=== PATIENT | male | born 1955 | race Caucasian/White ===

== ENCOUNTER 2016-10-25 20:58 | Emergency (ER) | payer BC ==
--- NOTE | 2016-10-25 21:23 | CPEKG ---
Heart Rate: 65 RR Interval: 923 P-R Interval: 244 QRSD Interval: 104 QT Interval: 452 QTC Interval: 470 P [place]: 0 QRS [place]: -8 T Wave [place]: 76 EKG Severity - ABNORMAL ECG - EKG Impression: SINUS RHYTHM EKG Impression: FIRST DEGREE AV BLOCK Electronically Signed By: Buck Wu 25-Oct-2016 23:04:10
--- NOTE | 2016-10-25 21:53 | EDPHY ---
H & P Stated Complaint: accidental levothyroxine OD ~30 min [employer]ER Source: Patient, Family Exam Limitations: No limitations - Personal History Current Tetanus/Diphtheria Vaccine: Yes Current Tetanus Diphtheria and Acellular Pertussis (TDAP): Yes - Medical/Surgical History Hx Asthma: No Hx Chronic Respiratory Disease: No Hx Diabetes: No Other PMH: HTN, Afib, high cholesterol, hypothyroid, pre diabetic - Social History Smoking Status: Never smoked HPI/ROS: CHIEF COMPLAINT: Accidental ingestion of Synthroid HISTORY OF PRESENT ILLNESS: patient says that approximately 2 hours prior to presentation he accidentally took his levothyroxine. These are 50 mcg tablets. He is uncertain how many, but he feels it was 10-15 of them. He has no complaints of any time other than feeling anxious about this. He has no chest pain. No palpitations. No shortness of breath. No sweating or hypertension by our appreciation. No abdominal pain, nausea or vomiting or dizziness. He says that he normally organizing his pills that he just takes 1 bottle every morning and evening for his daily meds, but he accidentally took the wrong bottle put he says that there were no pain medications or other meds in it and he knows that it was the levothyroxine. At this time he is completely asymptomatic. No sweating, chest pain palpitations shortness of breath or fever. No modifying factors as he has no complaints. REVIEW OF SYSTEMS: Ten systems reviewed and are negative unless otherwise noted in the HPI EXAMINATION General Appearance: Alert, no distress Head: normocephalic, atraumatic Eyes: Pupils equal and round, no conjunctival pallor or injection ENT, Mouth: Mucous membranes moist . Uvula midline. No lesions Neck: Normal inspection, supple, non-tender Respiratory: Lungs are clear to auscultation. No wheezing rhonchi or crackles Cardiovascular: Regular rate and rhythm. No murmur Gastrointestinal: Abdomen is soft and nontender Back: non-tender, no bony abnormalities Neurological: A&O, nonfocal, normal gait Skin: Warm and dry, no rash Extremities: Nontender, no pedal edema Psychiatric: Mood and affect normal DIFFERENTIAL DIAGNOSES: Including but not limited to accidental overdose, thyrotoxicosis, thyroid storm MDM: 9:53 p.m. accidental ingestion of excess levothyroxine, 50 mcg times 10-15. He has no complaints of any kind. He is resting stable. He has no tachycardia or tachypnea. He is afebrile. He is normotensive. He is asking to be discharged home but will monitor him. The nursing staff has contacted poison Control. They recommended 4 hour monitoring.. They also recommend that when he is discharged home if he is asymptomatic, they checked his temperature and heart rate twice daily. Should these increased, he should return to the emergency department immediately. They also recommend check an acetaminophen level. At this time he is comfortable with this plan and resting comfortably. 11:17 p.m. I have re-evaluated the patient. He is actually asleep. His heart rate is 70 beats per minute. Blood pressure is 135/65. He has no diaphoresis. He is afebrile. He is asking to be discharged home. I do feel he is stable for discharge home at this time. We did discuss the recommendations of the poison Control, including checking his temperature and pulse twice daily for 4 days. He is to return to the emergency department for any chest pain or palpitations, shortness of breath, fever, diaphoresis, dizziness or lightheadedness. He is comfortable with this plan as is his spouse at bedside. Discharged home stable conditions with strict return to the emergency department precautions. Poison Control EKG: Interpreted by Dr. Wu. Reviewed by me. SUPERVISION:This patient was independently evaluated without the aide of supervising physician.With case discussed with Dr. Wu (Ross Theodore) Constitutional: Initial Vital Signs Temperature (C) 98.2 F 10/25/16 20:59 Heart Rate 67 10/25/16 20:59 Respiratory Rate 18 10/25/16 20:59 Blood Pressure 174/76 H 10/25/16 20:59 O2 Sat (%) 94 10/25/16 20:59 O2 Delivery Mode Nasal Cannula O2 (L/minute) 2 Allergies/Adverse Reactions: No Known Allergies Allergy (Unverified 10/25/16 21:05) Home Medications: Medication Instructions Recorded Antidepressant "Starts With A" 10/25/16 Bystolic 10/25/16 Flecnine 10/25/16 Levothyroxine 10/25/16 Oxycodone HCl 10/25/16 metFORMIN HCL 10/25/16 Medical Decision Making - Diagnostics EKG Interpretation: EKG: Complete interpretation has been separately recorded in the [facility] archive. Summary impression: Sinus rhythm, rate 65 (Buck Wu) Other Provider: PHYSICIAN DOCUMENTATION: The patient was evaluated and managed by the Physician [employer] Director [employer]. My co- signature indicates that I have reviewed this chart and I agree with the findings and plan of care as documented. I am the secondary supervising physician. (Buck Wu) - Data Points Laboratory Results: 10/25/16 21:20 Acetaminophen < 10 L mcg/mL (10.0-30.0) Departure - Departure Disposition: Home, Routine, Self-Care Clinical Impression: Poisoning by levothyroxine sodium Qualifiers: Encounter type: initial encounter Injury intent: accidental or unintentional Qualifier Code: (T38.1X1A) Poisoning by thyroid hormones and substitutes, accidental (unintentional), initial encounter Condition: Good Instructions: Levothyroxine (By mouth) Additional Instructions: Check her temperature and heart rate twice daily for 4 days. Return to the ER for heart rate over 100 or any fever, temperature greater than 100.4 return to the ER for any chest pain, palpitations or diaphoresis. Referrals: OUT OF STATE,. [Primary Care Provider] - As per Instructions Zoe Corea MD [Medical Doctor] - As per Instructions
[2016-10-25 22:07] VITALS: TEMP 98.4
[2016-10-25 23:45] VITALS: BP 143/65; PULSE 71; RESP 16; O2SAT 91
== END 2016-10-25 23:44 | disposition home or self-care (01) ==
DX: T38.1X1A Poisoning by thyroid hormones and substitutes, accidental (unintentional), initial encounter (principal); I10 Essential (primary) hypertension
CPT/HCPCS: G0480